=== PATIENT | female | born 1945 | race Caucasian/White ===

== ENCOUNTER 2018-06-30 05:58 | Outpatient (CLI) | payer MEDICARE ==
[~2018-06-30] VITALS: Ht 157.5 cm; Wt 70.3 kg
[2018-06-30] MEDS ORDERED: CITA10TA7 PO (14:23)
[2018-06-30] MEDS ORDERED: DONE10TA41 PO (14:23)
== END 2018-06-30 14:31 | disposition home or self-care (01) ==
LOC: PREOP 05:58
PROVIDERS: ATTEND Specialist
DX: Z01.818 Encounter for other preprocedural examination (principal)

== ENCOUNTER 2018-07-03 06:33 | Day surgery (SDC) | payer MEDICARE, MEDICAID ==
[~2018-07-03] VITALS: Ht 157.5 cm; Wt 70.3 kg
[~2018-07-03 06:33] MED LIST: CITA10TA7 PO; DONE10TA41 PO
[2018-07-03 06:45] VITALS: BP 145/84
[2018-07-03] MEDS: TETRACAINE 0.5% OPHTH SOLN 4 ML BTL (SINGLE DOSE ONLY) OU PRN ×4 (06:56→07:10)
[2018-07-03] MEDS: PHENYLEPHRINE 10% OPHTH (NEO-SYN) 5 ML BTL OU PRN ×3 (07:00→07:11)
[2018-07-03] MEDS: TROPICAMIDE 1% OPH SOLN (MYDRIACYL) 15 ML BTL OU PRN ×3 (07:00→07:11)
--- NOTE | 2018-07-03 07:49 | Ophthalmologist Pre-Op Note ---
Pre-Operative Progress Note H&P Reviewed The H&P was reviewed, patient examined and no changes noted. Date H&P Reviewed: Jul 03, 2018 Time H&P Reviewed: 07:48 Pre-Op Dx Secondary Cataract, Right Eye ROSY SANTOS MD Jul 03, 2018 07:49
[2018-07-03 07:55] VITALS: BP 145/84
--- NOTE | 2018-07-03 07:58 | Ophthalmology Operative Report ---
YAG Capsulotomy PREOPERATIVE DIAGNOSIS: Secondary Cataract Left Eye POSTOPERATIVE DIAGNOSIS: Secondary Cataract Left Eye PROCEDURE: YAG Capsulotomy, left eye SURGEON: Ed Santos ANESTHESIA: Topical anesthesia COMPLICATIONS: None ESTIMATED BLOOD LOSS: Minimal DESCRIPTION OF PROCEDURE: After proper informed consent was obtained, the patient's, a 72 female left eye received one drop of Tropicamide and one drop of Tetracaine. The patient was then placed at the YAG laser and using a power of [4.5 ] millijoules and [27 ] bursts were used to fashion a central capsulotomy. The patient tolerated the procedure well without complications and the patient's pressure was [18 ] shortly after the laser. ED SANTOS MD Jul 03, 2018 07:58
== END 2018-07-03 07:55 | disposition home or self-care (01) ==
LOC: SDC 06:33
PROVIDERS: ATTEND Specialist
DX: H26.492 Other secondary cataract, left eye (principal); G30.9 Alzheimer's disease, unspecified; F02.80 Dementia in other diseases classified elsewhere, unspecified severity, without behavioral disturbance, psychotic disturbance, mood disturbance, and anxiety; F17.200 Nicotine dependence, unspecified, uncomplicated; Z79.899 Other long term (current) drug therapy

== ENCOUNTER → 2022-09-10 | Outpatient (CLI) | payer MEDICARE, MEDICAID ==
[~2022-09-10] MED LIST changes: -CITA10TA7 PO; +CITA10TA9 PO
[2022-09-10 10:37] LABS: BILIRUBIN,URINE NEGATIVE (NEGATIVE); CLARITY,URINE TURBID; COLOR,URINE YELLOW; GLUCOSE, URINE (UA) NEGATIVE (NEGATIVE); KETONES,URINE NEGATIVE (NEGATIVE); LEUKOCYTE ESTERASE ,URINE 3+ (NEGATIVE); NITRITE,URINE NEGATIVE (NEGATIVE); PROTEIN,URINE NEGATIVE (NEGATIVE)
[2022-09-10 11:16] LABS: BACTERIA,URINE LARGE /HPF; SQUAMOUS EPITHELIAL CELL,UR 0-2 /HPF
== END ==
LOC: LAB FS 10:18
PROVIDERS: ATTEND Pediatrics
DX: N39.0 Urinary tract infection, site not specified (principal)
CPT/HCPCS: 81000; 87077; 87088; 87186

== ENCOUNTER 2022-09-17 09:38 | Emergency (ER) | payer MEDICARE, MEDICAID ==
[2022-09-17 09:41] VITALS: BP 152/77
--- NOTE | 2022-09-17 09:41 | ED Fall/Injury ---
General Stated Complaint: BACK PAIN Source: EMS Exam Limitations: other (dementia ) History of Present Illness Date Seen by Provider: Sep 17, 2022 Time Seen by Provider: 09:39 Initial Comments 77-year-old female presents with a fall from her wheelchair. Patient has dementia and provides little HPI. Patient was at the retirement when they were playing and her chasing a balloon. That she slipped out of her retirement and complains of pain in her left shoulder and her left hip. She has full range of motion but pain with range of motion of both extremity. She did not hit her head. She did not lose consciousness. She denies any new acute injury or complaints. Allergies and Home Medications Allergies Coded Allergies: Penicillins (Verified Allergy, Intermediate, HIVES/SWELLING, 06/30/18) Patient Home Medication List Home Medication List Reviewed: Yes Citalopram Hydrobromide (Citalopram HBr) 10 Mg Tablet, 10 MG PO DAILY, (Reported) Entered as Reported by: KARENA DIAZ on 06/30/18 1423 Donepezil HCl (Donepezil HCl) 10 Mg Tablet, 10 MG PO DAILY, (Reported) Entered as Reported by: KARENA DIAZ on 06/30/18 1423 Hydrocodone/Acetaminophen (Hydrocodone-Acetamin 5-325 mg) 5 Mg-325 Mg Tablet, 0.5 TAB PO Q4H PRN for PAIN-MODERATE (5-7) Prescribed by: CAS PEREZ on 09/17/22 1044 Review of Systems Review of Systems Constitutional: no symptoms reported Eyes: No Symptoms Reported Ears, Nose, Mouth, Throat: no symptoms reported Respiratory: no symptoms reported Cardiovascular: no symptoms reported Gastrointestinal: no symptoms reported Genitourinary: no symptoms reported Musculoskeletal: see HPI Skin: no symptoms reported Physical Exam Vital Signs Vital Signs - First Documented 09/17/22 09:41 Temp 35.6 Pulse 73 Resp 18 B/P (MAP) 152/77 (102) Pulse Ox 93 O2 Delivery Room Air Capillary Refill : Height, Weight, BMI Height: '" Weight: lbs. oz. kg; BMI Method: General Appearance: WD/WN, no apparent distress HEENT: PERRL/EOMI, pharynx normal Neck: full range of motion, supple Cardiovascular: normal peripheral pulses, regular rate, rhythm Respiratory: lungs clear, normal breath sounds Gastrointestinal: non tender, soft Extremities: other (Mild tenderness left shoulder and left hip, full range of motion but tender) Neurologic/Psychiatric: alert, normal mood/affect Skin: normal color, warm/dry Progress/Results/Core Measures Results/Orders My Orders Orders - CAS PEREZ DO Pelvis With Left Hip 2-3 View (09/17/22 09:41) Shoulder 3 View Left (09/17/22 09:41) Knee 3 View Right (09/17/22 09:55) Ketorolac Injection (Toradol Injection) (09/17/22 10:15) Ed Ortho/Other Supplies Order (09/17/22 10:33) Vital Signs/I&O 09/17/22 09:41 Temp 35.6 Pulse 73 Resp 18 B/P (MAP) 152/77 (102) Pulse Ox 93 O2 Delivery Room Air Progress Progress Note : Progress Note Patient with pubic rami fracture and comminuted impacted humeral head and neck fracture. Patient placed in a sling. She was given some mild pain control based on her age and dementia history. Discussed with family and patient that she would need to follow-up with a translational specialist for further recommendations. Patient currently resides at a retirement. I recommended they have physical therapy come in and start working with her on her pubic rami fracture. Family was in agreement with her going back to the retirement and try to do conservative management there. Patient was stable discharged Diagnostic Imaging Diagonstic Imaging: Xray Plain Films/CT/US/NM/MRI: knee Comments Date of Exam:09/17/22 KNEE 3 VIEW RIGHT INDICATION: Fall, pain COMPARISON: None available TECHNIQUE: 3 radiographs of the right knee dated 09/17/2022. FINDINGS: No acute fracture or dislocation. No destructive osseous process. Moderate medial joint space narrowing. Lateral compartment is well maintained. No significant osteophytosis. Moderate sized knee joint effusion. Mild background vascular calcifications. No suspicious radiopaque foreign body. IMPRESSION: No acute osseous abnormality with [id number] degenerative changes present, greatest within the medial compartment. Moderate sized knee joint effusion. Should symptoms persist, consideration for MRI could be made, particularly given the presence of a knee joint effusion. Reviewed: Reviewed by Me, Reviewed/Discussed Diagonstic Imaging: Xray Plain Films/CT/US/NM/MRI: hip Comments Date of Exam:09/17/22 PELVIS WITH LEFT HIP 2-3 VIEW INDICATION: 77-year-old female, pain post fall. TECHNIQUE: AP pelvis along with 2 views left hip, at 09:57 a.m. CORRELATION STUDY: None. FINDINGS: Irregularity of the left superior and inferior pubic rami does suggest relatively nondisplaced likely acute fractures. The remainder of the pelvis is otherwise intact. The SI joints and pubic symphysis appearing unremarkable. Right hip joint is unremarkable. Scattered vascular calcification. Anastomotic suture line in low midline pelvis. Images of the left hip demonstrate no evidence for acute fracture. Alignment is anatomic. The femoral head acetabular relationship is unremarkable. The bony trabecular pattern is intact. IMPRESSION: Findings do suggest nondisplaced left superior and inferior pubic rami fractures. If clinically warranted, could be confirmed with additional CT imaging of the pelvis. Reviewed: Reviewed by Me, Reviewed/Discussed Diagonstic Imaging: Xray Plain Films/CT/US/NM/MRI: other Comments Date of Exam:09/17/22 SHOULDER 3 VIEW LEFT INDICATION: Pain post fall TECHNIQUE: Three views of the left shoulder 10:06 AM CORRELATION STUDY: None FINDINGS: Comminuted somewhat impacted humeral head and neck fracture. Very slight outward displacement of the main fracture fragment of the greater tuberosity. Glenohumeral alignment otherwise fairly well-maintained. The acromioclavicular joint maintained. Visualized left ribs appear to be intact. IMPRESSION: 1. Comminuted slightly impacted left humeral head and neck fracture. Reviewed: Reviewed by Me, Reviewed/Discussed Departure Impression Primary Impression: Pubic ramus fracture Qualified Codes: S32.592A - Other specified fracture of left pubis, initial encounter for closed fracture Additional Impressions: Fall Qualified Codes: W19.XXXA - Unspecified fall, initial encounter Humeral head fracture Qualified Codes: S42.292A - Other displaced fracture of upper end of left humerus, initial encounter for closed fracture Humeral surgical neck fracture Qualified Codes: S42.215A - Unspecified nondisplaced fracture of surgical neck of left humerus, initial encounter for closed fracture Disposition: 01 HOME, SELF-CARE Condition: Stable Departure-Patient Inst. Referrals: SONIA ANDERSON Patient Instructions: Pelvic Fracture, How to Use a Shoulder Sling ED, Upper Arm Fracture ED Add. Discharge Instructions: please have pt/ot evaluate and treat- please contact pcp for order follow up with translational specialist in 1 week for further management. tylenol or ibuprofen as needed for pain Scripts Hydrocodone/Acetaminophen (Hydrocodone-Acetamin 5-325 mg) 5 Mg-325 Mg Tablet 0.5 TAB PO Q4H PRN for PAIN-MODERATE (5-7), #10 TAB Prov: CAS PEREZ DO 09/17/22 CAS PEREZ DO Sep 17, 2022 09:40
[2022-09-17] MEDS ORDERED: KETOROLAC 60 MG/2 ML VIAL IM STA (10:15)
--- NOTE | 2022-09-17 10:29 | Diagnostic Imaging Report ---
INDICATION: Pain post fall TECHNIQUE: Three views of the left shoulder 10:06 AM CORRELATION STUDY: None FINDINGS: Comminuted somewhat impacted humeral head and neck fracture. Very slight outward displacement of the main fracture fragment of the greater tuberosity. Glenohumeral alignment otherwise fairly well-maintained. The acromioclavicular joint maintained. Visualized left ribs appear to be intact. IMPRESSION: 1. Comminuted slightly impacted left humeral head and neck fracture. Dictated by: Dictated on workstation # [id number]
--- NOTE | 2022-09-17 10:31 | Diagnostic Imaging Report ---
INDICATION: Fall, pain COMPARISON: None available TECHNIQUE: 3 radiographs of the right knee dated 09/17/2022. FINDINGS: No acute fracture or dislocation. No destructive osseous process. Moderate medial joint space narrowing. Lateral compartment is well maintained. No significant osteophytosis. Moderate sized knee joint effusion. Mild background vascular calcifications. No suspicious radiopaque foreign body. IMPRESSION: No acute osseous abnormality with [id number] degenerative changes present, greatest within the medial compartment. Moderate sized knee joint effusion. Should symptoms persist, consideration for MRI could be made, particularly given the presence of a knee joint effusion. Dictated by: Dictated on workstation # [id number]
--- NOTE | 2022-09-17 10:34 | Diagnostic Imaging Report ---
INDICATION: 77-year-old female, pain post fall. TECHNIQUE: AP pelvis along with 2 views left hip, at 09:57 a.m. CORRELATION STUDY: None. FINDINGS: Irregularity of the left superior and inferior pubic rami does suggest relatively nondisplaced likely acute fractures. The remainder of the pelvis is otherwise intact. The SI joints and pubic symphysis appearing unremarkable. Right hip joint is unremarkable. Scattered vascular calcification. Anastomotic suture line in low midline pelvis. Images of the left hip demonstrate no evidence for acute fracture. Alignment is anatomic. The femoral head acetabular relationship is unremarkable. The bony trabecular pattern is intact. IMPRESSION: Findings do suggest nondisplaced left superior and inferior pubic rami fractures. If clinically warranted, could be confirmed with additional CT imaging of the pelvis. Dictated by: Dictated on workstation # [id number]
[2022-09-17] MEDS ORDERED: ACHD5005 PO (10:43)
== END 2022-09-17 11:41 | disposition home or self-care (01) ==
LOC: EDUNIT# 09:38 → ER FS 09:39
DX: S32.592A Other specified fracture of left pubis, initial encounter for closed fracture (principal); S42.212A Unspecified displaced fracture of surgical neck of left humerus, initial encounter for closed fracture; F03.90 Unspecified dementia, unspecified severity, without behavioral disturbance, psychotic disturbance, mood disturbance, and anxiety; W05.0XXA Fall from non-moving wheelchair, initial encounter; Y92.129 Unspecified place in nursing home as the place of occurrence of the external cause
CPT/HCPCS: 73030; 73502; 73562

== ENCOUNTER → 2022-10-04 | Outpatient (CLI) | payer MEDICARE, MEDICAID ==
[~2022-10-04] MED LIST changes: +ACHD5005 PO
--- NOTE | 2022-10-04 16:13 | Diagnostic Imaging Report ---
EXAMINATION: Right knee radiographs, 3 views. COMPARISON: September 17, 2022. HISTORY: 77-year-old female, right knee pain. FINDINGS: There does appear to be cortical offset at the level of the lateral aspect of the distal femoral metaphysis which also can be seen anteriorly on the lateral view. This likely reflects a minimally displaced fracture. There is chondrocalcinosis. The joint spaces are well-preserved. There is no identified current knee joint effusion. There are vascular calcifications. The bones appear likely demineralized. IMPRESSION: 1. Probable minimally displaced fracture involving the lateral femoral condyle. 2. No current knee joint effusion. 3. The bones are likely demineralized. Dictated by: Dictated on workstation # [id number]
--- NOTE | 2022-10-04 16:15 | Diagnostic Imaging Report ---
INDICATION: Bilateral hip pain. COMPARISON with 09/17/2022. FINDINGS: The left pubic rami fractures are again noted with mild displacement. Femoral heads are in normal articulation bilaterally. Articulating surfaces are smooth. Joint spaces are well-maintained. There are no hypertrophic bony changes. No fractures. No soft tissue calcification. IMPRESSION: 1. Mildly displaced left pubic rami fracture. 2. Bilateral hips showing mild arthritic disease. Dictated by: Dictated on workstation # [id number]
--- NOTE | 2022-10-04 16:17 | Diagnostic Imaging Report ---
INDICATION: Left shoulder pain. History of humeral neck fracture. COMPARISON with 09/17/2022. FINDINGS: The comminuted impacted humeral head and neck fractures are again noted. The glenohumeral joint remains in good alignment. No significant callus formation has developed. AC joint remains in good alignment without hypertrophic change. IMPRESSION: 1. Comminuted impacted left humeral head and neck fractures without significant overall change in appearance. Dictated by: Dictated on workstation # [id number]
== END ==
LOC: RAD FS 10:00
PROVIDERS: ATTEND Nurse Practitioner
DX: S32.512A Fracture of superior rim of left pubis, initial encounter for closed fracture (principal); M25.561 Pain in right knee; S42.222A 2-part displaced fracture of surgical neck of left humerus, initial encounter for closed fracture; S32.592A Other specified fracture of left pubis, initial encounter for closed fracture; M16.0 Bilateral primary osteoarthritis of hip; X58.XXXA Exposure to other specified factors, initial encounter
CPT/HCPCS: 73030; 73521; 73562

== ENCOUNTER → 2022-10-22 | Outpatient (CLI) | payer MEDICARE, MEDICAID ==
--- NOTE | 2022-10-22 17:48 | Diagnostic Imaging Report ---
INDICATION: Left shoulder fracture follow-up AP, oblique, and transscapular views of the left shoulder obtained and compared to 09/17/2022. Chronic fracture deformity of the left humeral head is in stable alignment compared to the previous study with no sign of dislocation. There is no new bony abnormality. AC joint appears unremarkable. IMPRESSION: Chronic fracture deformity of humeral head in stable alignment with no new abnormality. Dictated by: Dictated on workstation # [id number]
--- NOTE | 2022-10-22 17:52 | Diagnostic Imaging Report ---
INDICATION: Right knee fracture follow-up AP, oblique, and lateral views of the right knee are obtained and compared with 10/04/2022 Fracture of the right lateral femoral condyle appears in stable alignment with further healing compared to the prior study. There is no new bone abnormality. IMPRESSION: Stable alignment of right femoral condyle fracture laterally, with further healing compared to the prior study. Dictated by: Dictated on workstation # [id number]
--- NOTE | 2022-10-22 17:53 | Diagnostic Imaging Report ---
Indication: Pelvic fracture. Time of Exam: 10:23 AM Correlation is made with prior study from 10/04/2022. Femoral acetabular alignment is normal bilaterally. Both femoral heads and necks are intact. The displaced fracture of the left superior pubic ramus is again noted. Fracture line remains clearly visible without significant callus formation. There may be a nondisplaced fracture of the left inferior pubic ramus, as well. Right-sided rami are intact. SI joints and symphysis are non-widened. IMPRESSION: Left-sided rami fractures, as described. Dictated by: Dictated on workstation # [id number]
== END ==
LOC: RAD FS 10:01
PROVIDERS: ATTEND Nurse Practitioner
DX: S42.222D 2-part displaced fracture of surgical neck of left humerus, subsequent encounter for fracture with routine healing (principal); S72.424D Nondisplaced fracture of lateral condyle of right femur, subsequent encounter for closed fracture with routine healing; S32.591D Other specified fracture of right pubis, subsequent encounter for fracture with routine healing; X58.XXXD Exposure to other specified factors, subsequent encounter
CPT/HCPCS: 72170; 73030; 73562

== ENCOUNTER → 2022-11-12 | Outpatient (CLI) | payer MEDICARE, MEDICAID ==
--- NOTE | 2022-11-12 13:16 | Diagnostic Imaging Report ---
INDICATION: Nondisplaced fracture of the femoral condyle. COMPARISON: 10/22/2022 and 09/17/2022 TECHNIQUE: 3 radiographs of the right knee dated 11/12/2022. FINDINGS: Increasing sclerosis is identified within the lateral femoral condyle, felt to relate to continued interval healing of previously noted lateral femoral condyle fracture. Alignment is unchanged. No new fracture or dislocation. No destructive osseous process. Mild medial joint space narrowing. Lateral compartment is well maintained. Chondrocalcinosis of the menisci is again seen. Improving knee joint effusion. Mild background vascular calcifications. IMPRESSION: Continued interval healing of previously noted nondisplaced lateral femoral condyle fracture with alignment remaining stable. No new acute osseous abnormality with mild degenerative changes. Improving knee joint effusion. Dictated by: Dictated on workstation # [id number]
--- NOTE | 2022-11-12 13:28 | Diagnostic Imaging Report ---
INDICATION: Fracture follow-up COMPARISON: 10/04/2022 TECHNIQUE: Single radiograph pelvis dated 11/12/2022. FINDINGS: Big Arm left curvature of the partially visualized lumbar spine with associated moderate degenerative changes. The sacroiliac joints appear intact. Fracturing of the left superior and inferior pubic rami are again identified. Inferior displacement of the left superior pubic ramus fracture is again identified. Slightly increasing sclerosis is noted within the region. No new fracture or dislocation. No destructive osseous process. Minimal degenerative changes the bilateral hips. Background vascular calcifications, including potential aneurysm of the minimally visualized abdominal aorta. IMPRESSION: Left superior and inferior pubic rami fractures are again identified remaining in stable alignment. There appears to be minimal if any healing noted at this time. Recommend continued radiographic follow-up. No new acute osseous abnormality, with scattered degenerative changes present. 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 Dictated by: Dictated on workstation # [id number]
== END ==
LOC: RAD FS 10:32
PROVIDERS: ATTEND Nurse Practitioner
DX: S32.591D Other specified fracture of right pubis, subsequent encounter for fracture with routine healing (principal); X58.XXXD Exposure to other specified factors, subsequent encounter
CPT/HCPCS: 72170; 73562

== ENCOUNTER 2023-05-26 14:21 | Observation (INO) | payer MEDICARE, MEDICAID ==
[~2023-05-26] VITALS: Ht 152.4 cm; Wt 63.4 kg
[2023-05-26] MEDS ORDERED: NS IV 500 ML 500 ML IV STA (14:29)
[2023-05-26] MEDS ORDERED: NALOXONE 0.4 MG/ML 1 ML (NARCAN) VIAL ONE (14:30)
[2023-05-26] MEDS ORDERED: NALOXONE 0.4 MG/ML 1 ML (NARCAN) VIAL IV ONE (14:30)
--- NOTE | 2023-05-26 14:35 | ED General ---
General Chief Complaint: Altered Mental Status Stated Complaint: AMS Source of Information: Patient, EMS Exam Limitations: Other (clinical condition, dementia) History of Present Illness Date Seen by Provider: May 26, 2023 Time Seen by Provider: 14:19 Initial Comments 77-year-old female with dementia presents for altered mentation. Per EMS, staff at the custodial reported that she sat up and vomited. Immediately after that she had somnolence with decreased responsiveness. On EMS arrival she was somewhat responsive but did seem confused. EMS reports low blood pressures in route, 80-90 systolic. On arrival the patient is alert and oriented to person. She is somnolent but arousable and answering questions, following commands. She does not really remember what happened or why she is here. All other systems reviewed and negative except documented per HPI. Voice recognition software was used to help create this chart Allergies and Home Medications Allergies Coded Allergies: Penicillins (Verified Allergy, Intermediate, HIVES/SWELLING, 06/30/18) Patient Home Medication List Home Medication List Reviewed: Yes Citalopram Hydrobromide (Citalopram HBr) 10 Mg Tablet, 10 MG PO DAILY, (Reported) Entered as Reported by: KARENA DIAZ on 06/30/18 1423 Donepezil HCl (Donepezil HCl) 10 Mg Tablet, 10 MG PO DAILY, (Reported) Entered as Reported by: KARENA DIAZ on 06/30/18 1423 Hydrocodone/Acetaminophen (Hydrocodone-Acetamin 5-325 mg) 5 Mg-325 Mg Tablet, 0.5 TAB PO Q4H PRN for PAIN-MODERATE (5-7) Prescribed by: CAS PEREZ on 09/17/22 1044 Review of Systems Review of Systems Constitutional: see HPI Past Huwiqls-Lugqwe-Ekhhxn Hx Patient Social History Tobacco Use?: No Use of E-Cig and/or Vaping dev: No Substance use?: No Alcohol Use?: No Physical Exam Vital Signs Vital Signs - First Documented 05/26/23 14:26 Temp 36.4 Pulse 66 Resp 14 B/P (MAP) 89/50 (63) Pulse Ox 94 O2 Delivery Room Air Capillary Refill : Height, Weight, BMI Height: 5'2.00" Weight: 155lbs. 0.0oz. [id number]; BMI Method: General Appearance: No Apparent Distress, WD/WN Eyes: Bilateral Eye Abnormal Pupil (Pupils are constricted bilaterally) HEENT: TMs Normal, Normal ENT Inspection, Pharynx Normal Neck: Full Range of Motion, Non Tender, Supple Respiratory: Chest Non Tender, Lungs Clear, Normal Breath Sounds Cardiovascular: Regular Rate, Rhythm, No Murmur, Normal Peripheral Pulses, Other (Potential) Gastrointestinal: Normal Bowel Sounds, No Organomegaly, Non Tender, Soft Extremity: Normal Capillary Refill, Normal Inspection, Normal Range of Motion, Non Tender, No Calf Tenderness Neurologic/Psychiatric: Alert, No Motor/Sensory Deficits, Normal Mood/Affect, general partner II-XII Norm as Tested, Other (Oriented to person) Skin: Normal Color, Warm/Dry Focused Exam Lactate Level 05/26/23 14:45: Lactic Acid Level 1.57 Lactic Acid Level Laboratory Tests Test 05/26/23 14:45 Lactic Acid Level 1.57 MMOL/L (0.50-2.00) Progress/Results/Core Measures Suspected Sepsis SIRS Temperature: Pulse: Respiratory Rate: Laboratory Tests 05/26/23 14:34: White Blood Count 8.8 Blood Pressure / Mean: 05/26/23 14:45: Lactic Acid Level 1.57 Laboratory Tests 05/26/23 14:34: Creatinine 0.95, INR Comment 0.9, Platelet Count 337, Total Bilirubin < 0.2 Results/Orders Lab Results Laboratory Tests Test 05/26/23 14:34 05/26/23 14:45 05/26/23 14:57 Range/Units White Blood Count 8.8 4.3-11.0 10^3/uL Red Blood Count 3.91 3.80-5.11 10^6/uL Hemoglobin 12.5 11.5-16.0 g/dL Hematocrit 38 35-52 % Mean Corpuscular Volume 98 80-99 fL Mean Corpuscular Hemoglobin 32 25-34 pg Mean Corpuscular Hemoglobin Concent 33 32-36 g/dL Red Cell Distribution Width 13.8 10.0-14.5 % Platelet Count 337 130-400 10^3/uL Mean Platelet Volume 9.4 9.0-12.2 fL Neutrophils (%) (Auto) 68 42-75 % Lymphocytes (%) (Auto) 22 12-44 % Monocytes (%) (Auto) 6 0-12 % Eosinophils (%) (Auto) 4 0-10 % Basophils (%) (Auto) 1 0-10 % Neutrophils # (Auto) 6.0 1.8-7.8 X 10^3 Lymphocytes # (Auto) 1.9 1.0-4.0 X 10^3 Monocytes # (Auto) 0.6 0.0-1.0 X 10^3 Eosinophils # (Auto) 0.3 0.0-0.3 10^3/uL Basophils # (Auto) 0.0 0.0-0.1 10^3/uL Prothrombin Time 12.7 12.2-14.7 SEC INR Comment 0.9 0.8-1.4 Activated Partial Thromboplast Time 22 L 24-35 SEC Sodium Level 138 135-145 MMOL/L Potassium Level 5.3 H 3.6-5.0 MMOL/L Chloride Level 103 98-107 MMOL/L Carbon Dioxide Level 22 21-32 MMOL/L Anion Gap 13 5-14 MMOL/L Blood Urea Nitrogen 17 7-18 MG/DL Creatinine 0.95 0.60-1.30 MG/DL Estimat Glomerular Filtration Rate 62 BUN/Creatinine Ratio 18 Glucose Level 173 H 70-105 MG/DL Calcium Level 9.4 8.5-10.1 MG/DL Corrected Calcium 9.5 8.5-10.1 MG/DL Total Bilirubin < 0.2 0.1-1.0 MG/DL Aspartate Amino Transf (AST/SGOT) 18 5-34 U/L Alanine Aminotransferase (ALT/SGPT) 9 0-55 U/L Alkaline Phosphatase 81 40-136 U/L Troponin I < 0.30 <0.30 NG/ML Total Protein 7.0 6.4-8.2 GM/DL Albumin 3.9 3.2-4.5 GM/DL Urine Color PALE YELLOW Urine Clarity CLEAR Urine pH 6.0 5-9 Urine Specific Boomer 1.010 L 1.016-1.022 Urine Protein NEGATIVE NEGATIVE Urine Glucose (UA) NEGATIVE NEGATIVE Urine Ketones NEGATIVE NEGATIVE Urine Nitrite POSITIVE H NEGATIVE Urine Bilirubin NEGATIVE NEGATIVE Urine Urobilinogen 0.2 < = 1.0 MG/DL Urine Leukocyte Esterase 2+ H NEGATIVE Urine RBC (Auto) NEGATIVE NEGATIVE Urine RBC NONE /HPF Urine WBC 10-25 H /HPF Urine Squamous Epithelial Cells 0-2 /HPF Urine Crystals NONE /LPF Urine Bacteria MODERATE H /HPF Urine Casts PRESENT /LPF Urine Hyaline Casts 0-2 H /LPF Urine Granular Casts 25-50 H /LPF Urine Mucus SMALL H /LPF Urine Culture Indicated CULTURE PENDING Lactic Acid Level 1.57 0.50-2.00 MMOL/L Blood Gas Puncture Site RT RADIAL Blood Gas Patient Temperature 36.4 Arterial Blood pH 7.34 *L 7.37-7.43 Arterial Blood Partial Pressure CO2 38 35-45 MMHG Arterial Blood Partial Pressure O2 80 79-93 MMHG Arterial Blood HCO3 21 L 23-27 MMOL/L Arterial Blood Total CO2 21.7 21.0-31.0 MMOL/L Arterial Blood Oxygen Saturation 95 94-100 % Arterial Blood Base Excess -4.8 L -2.5-2.5 MMOL/L Carlos Test YES-POS Blood Gas Ventilator Setting NO Blood Gas Inspired Oxygen ROOM My Orders Orders - REGINAMUNA PORTER DO Naloxone Injection (Narcan Injection) (05/26/23 14:30) Cbc With Automated Diff (05/26/23 14:29) Comprehensive Metabolic Panel (05/26/23 14:29) Blood Culture (05/26/23 14:29) Urinalysis (05/26/23 14:29) Urine Culture (05/26/23 14:29) Protime With Inr (05/26/23 14:29) Partial Thromboplastin Time (05/26/23 14:29) Chest 1 View Ap/Pa Only (05/26/23 14:29) Ed Iv/Invasive Line Start (05/26/23 14:29) Vital Signs Adult Sepsis Patie Q15M (05/26/23 14:29) O2 (05/26/23 14:29) Lactic Acid Analyzer (05/26/23 14:29) Ns Iv 500 Ml (Sodium Chloride 0.9%) (05/26/23 14:29) Ct Head Wo (05/26/23 14:30) Naloxone Injection (Narcan Injection) (05/26/23 14:30) Troponin I Fs (05/26/23 14:35) Ekg Tracing (05/26/23 14:35) Ns Iv 1000 Ml (Sodium Chloride 0.9%) (05/26/23 14:46) Arterial Blood Gas (05/26/23 15:01) Ceftriaxone Iv/Im (Ceftriaxone Iv/Im) (05/26/23 15:30) Ed Admission (Communication) (05/26/23 15:38) Medications Given in ED Current Medications Medications Dose Ordered Sig/Bernardino Route Start Time Stop Time Status Last Admin Dose Admin Ceftriaxone Sodium 1000 mg/ Sodium Chloride 50 ml @ 100 mls/hr ONCE ONCE IV 05/26/23 15:30 05/26/23 15:59 DC 05/26/23 15:35 100 MLS/HR Naloxone HCl 0.4 mg ONCE ONCE IV 05/26/23 14:30 05/26/23 14:31 DC 05/26/23 14:31 0.4 MG Vital Signs/I&O 05/26/23 05/26/23 14:26 14:26 Temp 36.4 Pulse 66 Resp 14 B/P (MAP) 89/50 (63) Pulse Ox 94 O2 Delivery Room Air Room Air Capillary Refill : ECG Comment Sinus rhythm with a rate of 60 bpm. Normal intervals. Left axis deviation. No ST or T wave abnormalities. No ectopy. No STEMI. Critical Care Note Critical Care Total Time (minutes) 60 Departure Communication (Admissions) Patient initially low blood pressures, 70-80 systolic. Responded rapidly to IV fluids. She has had a total of 2 L of IV fluids. Her mentation improved after her blood pressure is improved. She is now 120 systolic. Her CBC is unremarkable grossly. Her chemistry is unremarkable. Lactic acid is normal. She does have a UTI, started on Rocephin. Given her recent bout of hypotension we will go ahead admit her to the hospital observation for IV antibiotics and monitoring of blood pressures. Her daughter is at bedside and believes she is back to her normal mental baseline. Her CT scan of her head is negative for any acute findings but does show some chronic microvascular changes. I have independently reviewed these images and agree. Chest x-ray shows no acute cardiopulmonary abnormality. I independently reviewed this as well. EKG is nonischemic as documented elsewhere. Impression Primary Impression: UTI (urinary tract infection) Qualified Codes: N30.00 - Acute cystitis without hematuria Additional Impression: Hypotension Qualified Codes: I95.9 - Hypotension, unspecified Disposition: 30 STILL A PATIENT Condition: Stable Departure-Patient Inst. Referrals: BRANDON JOHNSON MD (PCP) Primary Care Physician MUNA TAPIA DO May 26, 2023 14:35
[2023-05-26 14:43] LABS: HEMATOCRIT 38 % (35-52); HEMOGLOBIN 12.5 g/dL (11.5-16.0); MEAN CORPUSCULAR HEMOGLOBIN 32 pg (25-34); WHITE BLOOD COUNT 8.8 10^3/uL (4.3-11.0)
[2023-05-26 14:44] LABS: BASOPHILS % (AUTO) 1 % (0-10); EOSINOPHILS # (AUTO) 0.3 10^3/uL (0.0-0.3); EOSINOPHILS % (AUTO) 4 % (0-10); LYMPHOCYTES # (AUTO) 1.9 X 10^3 (1.0-4.0); LYMPHOCYTES % (AUTO) 22 % (12-44); MEAN CORPUSCULAR HGB CONC 33 g/dL (32-36); MEAN CORPUSCULAR VOLUME 98 fL (80-99); MEAN PLATELET VOLUME 9.4 fL (9.0-12.2); MONOCYTES # (AUTO) 0.6 X 10^3 (0.0-1.0); MONOCYTES % (AUTO) 6 % (0-12); NEUTROPHILS % (AUTO) 68 % (42-75); PLATELET COUNT 337 10^3/uL (130-400)
[2023-05-26] MEDS ORDERED: NS IV 1000 ML 1,000 ML ONE (14:46)
[2023-05-26 14:54] LABS: INR 0.9 (0.8-1.4); PROTHROMBIN TIME PATIENT 12.7 SEC (12.2-14.7)
[2023-05-26 15:08] LABS: ALANINE AMINOTRANSFERASE 9 U/L (0-55); ALBUMIN 3.9 GM/DL (3.2-4.5); ALKALINE PHOSPHATASE 81 U/L (40-136); BILIRUBIN,TOTAL < 0.2 MG/DL (0.1-1.0); BUN/CREATININE RATIO 18; CALCIUM 9.4 MG/DL (8.5-10.1); CARBON DIOXIDE 22 MMOL/L (21-32); CHLORIDE 103 MMOL/L (98-107); CREATININE SERUM 0.95 MG/DL (0.60-1.30); GFR ESTIMATED 62; GLUCOSE 173 MG/DL (70-105); POTASSIUM 5.3 MMOL/L (3.6-5.0); SODIUM 138 MMOL/L (135-145)
[2023-05-26 15:14] LABS: ABG BASE EXCESS -4.8 MMOL/L (-2.5-2.5); ABG OXYGEN SATURATION 95 % (94-100); ABG PCO2 38 MMHG (35-45); ABG PO2 80 MMHG (79-93); ABG TCO2 21.7 MMOL/L (21.0-31.0); ALLENS TEST YES-POS
[2023-05-26 15:15] LABS: INSPIRED O2 ROOM; PATIENT TEMP 36.4; VENTILATOR NO
[2023-05-26 15:16] LABS: BILIRUBIN,URINE NEGATIVE (NEGATIVE); CLARITY,URINE CLEAR; KETONES,URINE NEGATIVE (NEGATIVE); LEUKOCYTE ESTERASE ,URINE 2+ (NEGATIVE); NITRITE,URINE POSITIVE (NEGATIVE); PROTEIN,URINE NEGATIVE (NEGATIVE)
[2023-05-26 15:17] LABS: COLOR,URINE PALE YELLOW; GLUCOSE, URINE (UA) NEGATIVE (NEGATIVE)
[2023-05-26 15:18] LABS: ABG PH 7.34 (7.37-7.43)
[2023-05-26 15:18] LABS: BACTERIA,URINE MODERATE /HPF; HYALINE CASTS, URINE 0-2 /LPF; SQUAMOUS EPITHELIAL CELL,UR 0-2 /HPF
[2023-05-26 15:19] LABS: GRANULAR CASTS,URINE 25-50 /LPF
--- NOTE | 2023-05-26 15:19 | Diagnostic Imaging Report ---
INDICATION: AMS, hypotension. COMPARISON: None. FINDINGS: A single frontal view of the chest demonstrates normal heart size and pulmonary vascularity. The lungs are well aerated and clear. No large pleural effusion or pneumothorax is seen. The visualized osseous structures show no acute abnormalities. IMPRESSION: No acute cardiopulmonary process. Dictated by: Dictated on workstation # [id number]
--- NOTE | 2023-05-26 15:19 | Diagnostic Imaging Report ---
INDICATION: altered mental status TECHNIQUE: Routine non contrast-enhanced axial images were obtained from the skull base to the vertex. Auto Exposure Controls were utilized during the CT exam to meet ALARA standards for radiation dose reduction COMPARISON: None. FINDINGS: The ventricles and cortical sulci are diffusely prominent, compatible with age-related volume loss. There are confluent areas of abnormal, low attenuation in the periventricular white matter. This is consistent with small vessel ischemic changes; age-indeterminate. There is no prior study available for comparison. Small old right basal ganglial lacunar infarct is also noted. There is no midline shift or mass-effect. No acute intra-axial hemorrhage is seen. There are no abnormal areas of increased or decreased density to suggest acute hemorrhage or edema. No extra-axial masses or collections are present. The bony calvarium is intact. The visualized paranasal sinuses are unremarkable. The mastoid air cells are clear. IMPRESSION: 1. No acute intracranial abnormality. No CT evidence of mass, acute infarct or intracranial hemorrhage. 2. Small vessel ischemic changes in the periventricular and subcortical white matter; likely chronic. 3. 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 Dictated by: Dictated on workstation # [id number]
[2023-05-26] MEDS ORDERED: cefTRIAXone IV/IM 1,000 MG in NS (IVPB) 50 ML 50 ML IV ONE (15:30)
[2023-05-26 17:55] VITALS: BP 109/60
[2023-05-26] MEDS ORDERED: ACETAMINOPHEN 325 MG TABLET PO PRN (18:15)
[2023-05-26] MEDS ORDERED: ANTACID SUSP 30 ML UDC (MYLANTA) PO PRN (18:15)
[2023-05-26] MEDS ORDERED: polyethylene glycoL POWDER 17 GM (MIRALAX) PACK PO PRN (18:15)
[2023-05-26] MEDS ORDERED: BISACODYL 10 MG SUPPOSITORY PR PRN (18:15)
[2023-05-26] MEDS ORDERED: ENOXAPARIN 40 MG/0.4 ML SYRINGE SC SCH (18:15)
[2023-05-26] MEDS ORDERED: MELATONIN 3 MG TABLET PO PRN (18:15)
[2023-05-26] MEDS ORDERED: ONDANSETRON 4 MG/2 ML (SDV) Z0FRAN IV PRN (18:15)
[2023-05-26] MEDS ORDERED: LACTULOSE SYRUP 10GM/15ML 30ML UDC PO PRN (18:15)
[2023-05-26] MEDS ORDERED: ONDANSETRON 4 MG (ZOFRAN) ORAL DISSOLVE TAB PO PRN (18:15)
[2023-05-26] MEDS: NS IV 1000 ML 1,000 ML IV SCH (18:48)
[2023-05-26] MEDS: DOCUSATE SODIUM 100 MG CAPSULE PO SCH (19:26)
[2023-05-26 20:08] VITALS: BP 120/76
[2023-05-26 23:13] VITALS: BP 164/96
[2023-05-27 03:48] VITALS: BP 150/87
[2023-05-27] MEDS: NS IV 1000 ML 1,000 ML IV SCH (04:59)
[2023-05-27 05:28] LABS: BASOPHILS # (AUTO) 0.1 10^3/uL (0.0-0.1); BASOPHILS % (AUTO) 1 % (0-10); EOSINOPHILS # (AUTO) 0.3 10^3/uL (0.0-0.3); EOSINOPHILS % (AUTO) 5 % (0-10); HEMATOCRIT 37 % (35-52); HEMOGLOBIN 11.7 g/dL (11.5-16.0); LYMPHOCYTES # (AUTO) 1.8 10^3/uL (1.0-4.0); LYMPHOCYTES % (AUTO) 26 % (12-44); MEAN CORPUSCULAR HEMOGLOBIN 31 pg (25-34); MEAN CORPUSCULAR HGB CONC 32 g/dL (32-36); MEAN CORPUSCULAR VOLUME 96 fL (80-99); MEAN PLATELET VOLUME 9.3 fL (9.0-12.2); MONOCYTES # (AUTO) 0.6 10^3/uL (0.0-1.0); MONOCYTES % (AUTO) 9 % (0-12); NEUTROPHILS % (AUTO) 59 % (42-75); PLATELET COUNT 299 10^3/uL (130-400); WHITE BLOOD COUNT 6.7 10^3/uL (4.3-11.0)
[2023-05-27 05:52] LABS: CALCIUM 9.1 MG/DL (8.5-10.1); CREATININE SERUM 0.76 MG/DL (0.60-1.30); POTASSIUM 4.3 MMOL/L (3.6-5.0)
[2023-05-27 07:45] VITALS: BP 148/80
[2023-05-27] MEDS: DOCUSATE SODIUM 100 MG CAPSULE PO SCH (08:30)
[2023-05-27 11:19] VITALS: BP 136/79
[2023-05-27] MEDS ORDERED: DIPH25TA65 PO (11:37)
[2023-05-27] MEDS ORDERED: BUSP15TA60 PO (11:37)
[2023-05-27] MEDS ORDERED: DULO60CA59 PO (11:37)
[2023-05-27] MEDS ORDERED: ACET-2267 PO (11:37)
[2023-05-27] MEDS ORDERED: MELO15TA39 PO (11:37)
[2023-05-27] MEDS ORDERED: POLY17PO6 PO (11:37)
[2023-05-27] MEDS ORDERED: ACET325C7 PO (11:37)
[2023-05-27] MEDS ORDERED: BENZ200C51 PO (11:37)
--- NOTE | 2023-05-27 11:52 | Short Stay Summary-Hospitalist ---
LAURNE MULTANI 05/27/23 1152: History of Present Illness HPI/Chief Complaint Mavis Mcknight 77 year-old female assisted resident with a known history of early onset dementia and depression who was brought to the ED on 05/26 by EMS for concerns of altered mental status. Per ED notes, the assisted staff indicated to EMS that the patient had experienced one episode of vomiting earlier that day followed by somnolence and decreased responsiveness. At the ED, the patient appeared confused about her location/reason for the ED visit but was able to follow commands and answer questions appropriately. The patient's daughter arrived quickly after the patient's arrival to the ED; the patient initially did not recognize the daughter (which the daughter indicated had never happened previously), however she rapidly returned to her baseline mentation. She was found to have hypotension (70-80 systolic) and UA positive for nitrates, leukocyte esterase, and moderate bacteria. WBC and other vitals were within normal limits. Systolic blood pressure quickly normalized to 120 with 2L of IV fluids. A head CT and chest CXR were negative for acute changes. Ceftriaxone was initiated and the patient was admitted to [facility] for further management of uncomplicated urinary tract infection and altered mental status. On day 2 of hospitalization, the patient was pleasant and appeared comfortable, denying abdominal pain, suprapubic pain, flank pain and chills. She could identify her name but not the date, location, or reason for her hospitalization; her daughter , present at bedside, indicated this to be consistent with her baseline. She was discharged this day (05/27) with a 2-day course of Cephalexin. Source: patient, family (daughter) Exam Limitations: no limitations Date Seen 05/27/23 Time Seen by a Provider: 11:15 Attending Physician Brandon Johnson MD PCP Admitting Physician: Linda Dietz MD Attending Physician: Michelle Ribeiro MD Referring Physician Date of Admission May 26, 2023 at 17:45 Home Medications & Allergies Home Medications Reviewed patient Home Medication Reconciliation performed by pharmacy medication reconciliations crystal growing technician and/or nursing. Patients Allergies have been reviewed. Allergies Allergies Coded Allergies Penicillins (Verified Allergy, Intermediate, HIVES/SWELLING, 05/26/23) Past Medical/Social/Family Hx Patient Social History Tobacco Use?: No Smoking Status: Former Smoker Smokeless Tobacco Frequency: Never a User Use of E-Cig and/or Vaping dev: No Substance use?: No Alcohol Use?: No Pt stated abuse/neglect: Unable to obtain Current Status status: No status: No Advance Directives: No Communicates: Verbally Primary Language: Armenian Preferred Spoken Language: Armenian Is interpretation needed?: No Review of Systems Constitutional: no symptoms reported; No chills EENTM: no symptoms reported Respiratory: cough (intermittent, chronic); No short of breath Cardiovascular: No chest pain, No edema, No palpitations Genitourinary: no symptoms reported Physical Exam Physical Exam Vital Signs Vital Signs - First Documented 05/26/23 14:26 Temp 36.4 Pulse 66 Resp 14 B/P (MAP) 89/50 (63) Pulse Ox 94 O2 Delivery Room Air Capillary Refill : Less Than 3 Seconds Height, Weight, BMI Height: 5'2.00" Weight: 155lbs. 0.0oz. 70.221586ed; 27.29 BMI Method: General Appearance: No Apparent Distress, WD/WN Eyes: Bilateral Eye Abnormal Pupil (Pupils are constricted bilaterally) HEENT: PERRL/EOMI Neck: Non Tender, Supple Respiratory: Chest Non Tender, Lungs Clear, Normal Breath Sounds Cardiovascular: Regular Rate, Rhythm, No Edema, No Murmur, Normal Peripheral Pulses, Other (Potential) Gastrointestinal: Normal Bowel Sounds, Non Tender, Soft Extremity: Non Tender, No Calf Tenderness Neurologic/Psychiatric: Alert, Normal Mood/Affect, Other (Oriented to person) Skin: Normal Color, Warm/Dry Results Results/Procedures Labs Laboratory Tests 05/26/23 14:34 05/27/23 05:15 Patient resulted labs reviewed. Short Stay Diagnosis Discharge Diagnosis-Short Stay Admission Diagnosis Altered mental status Uncomplicated urinary tract infection Final Discharge Diagnosis Uncomplicated urinary tract infection Conclusion Plan Patient to complete antibiotic course with 2 days of Cephalexin. Copy Copies To 1: BRANDON JOHNSON MD, KATELYN M MD 05/27/23 1249: Short Stay Diagnosis Conclusion Plan She was admitted to the hospital secondary to altered mental status and urinary tract infection with some hypotension. Hypotension occurred following episode of vomiting was presumed to be a vagal response. She had no further nausea or vomiting. E. coli was growing in her urine culture and blood cultures were negative. Discussed with her daughter as she was back with baseline and showed no evidence of sepsis about plan for discharge. Due to dementia goal was to get patient back to her home environment as quickly as possible. I followed up cultures the day after discharge to ensure sensitivity to oral antibiotics that she was sent home on. She did grow a pansensitive E. coli and is on appropriate antibiotics. I attempted to call the daughter but there is no answer. She has follow-up with her primary care physician to follow-up this hospital stay. Copy Copies To 1: BRANDON JOHNSON MD Supervisory-Addendum Brief Verification & Attestation Participated in pt care: history, MDM, physical Personally performed: exam, history, MDM, supervision of care Care discussed with: Medical Student Procedures: n/a Results interpretation: Verified all documentation Verification and Attestation of Medical Student E/M Service A medical student performed and documented this service in my presence. I reviewed and verified all information documented by the medical student and made modifications to such information, when appropriate. I personally performed the physical exam and medical decision making. Michelle Ribeiro, May 27, 2023,12:49 LAUREN MULTANI May 27, 2023 11:52 MICHELLE RIBEIRO MD May 27, 2023 12:49
[2023-05-27] MEDS ORDERED: CEPH500T PO (12:12)
--- NOTE | 2023-05-27 12:13 | Discharge Inst-Simple/Standard ---
Discharge Inst-Standard Discharge Medications New, Converted or Re-Newed RX: Transmitted to Pharmacy Patient Instructions/Follow Up Plan of Care/Instructions/FU: Please continue to take your medications as written. Please follow up with your primary care doctor to follow up this hospital stay. Activity as Tolerated: Yes Discharge Diet: No Restrictions Return to The Hospital For: Chest pain, shortness of breath, fever, weakness, if you feel you are getting worse. MICHELLE VILLA MD May 27, 2023 12:13
[2023-05-27 14:08] VITALS: BP 136/79
[2023-05-27] MEDS ORDERED: cefTRIAXone IV/IM 1,000 MG in NS (IVPB) 50 ML 50 ML IV SCH (15:00)
== END 2023-05-27 14:25 ==
LOC: EDUNIT# 14:21 → ER FS 14:22 → UNDOADMOB 17:45 → 4TH 17:45 → UNDODISOB 05-27 14:25
PROVIDERS: ADMIT Internal Medicine; ATTEND Family Medicine
DX: N30.00 Acute cystitis without hematuria (principal); I95.9 Hypotension, unspecified; R41.82 Altered mental status, unspecified; Z87.891 Personal history of nicotine dependence
CPT/HCPCS: 36415; 70450; 71045; 80048; 80053; 81000; 82805; 83605; 84484; 85025 ×2; 85610; 85730; 87040; 87077; 87088; 87186; 93005; 96361 ×2; 96372; 99285; G0378

== ENCOUNTER → 2023-09-17 | Outpatient (CLI) | payer MEDICARE, MEDICAID ==
[~2023-09-17] MED LIST changes: +ACET-2267 PO; +ACET325C7 PO; +BENZ200C51 PO; +BUSP15TA60 PO; +CEPH500T PO; +DIPH25TA65 PO; +DULO60CA59 PO; +MELO15TA39 PO; +POLY17PO6 PO
[2023-09-17 19:51] LABS: BACTERIA,URINE LARGE /HPF; BILIRUBIN,URINE 2+ (NEGATIVE); CALCIUM OXALATE CRYSTALS,UR MODERATE /LPF; CLARITY,URINE CLOUDY; COLOR,URINE DARK YELLOW; GLUCOSE, URINE (UA) NEGATIVE (NEGATIVE); HYALINE CASTS, URINE >50 /LPF; KETONES,URINE TRACE (NEGATIVE); LEUKOCYTE ESTERASE ,URINE TRACE (NEGATIVE); NITRITE,URINE NEGATIVE (NEGATIVE); PH,URINE 5.5 (5-9); PROTEIN,URINE 2+ (NEGATIVE); WBC,URINE 50-100 /HPF
== END ==
PROVIDERS: ATTEND Pediatrics
DX: N39.0 Urinary tract infection, site not specified (principal)
CPT/HCPCS: 81000; 87088